=== PATIENT | female | born 1945 | race Caucasian/White ===

== ENCOUNTER 2017-02-16 15:31 | Inpatient (IN) | payer OTHER ==
[~2017-02-16] VITALS: Ht 157.4 cm; Wt 41.7 kg
--- NOTE | ~2017-02-16 | PR ---
[place], [place] PROGRESS NOTE [id number] UNIT #: [id number] ROOM: 317 DOCTOR: JORDAN IGNACIO MD BIRTHDATE: [birth year] DOS: 02/18/2017 CHIEF COMPLAINT: "I don't know how I a peer." SUMMARY OF THE VISIT: The patient was interviewed in the dining area. She engaged readily in conversation, but tended to be somewhat perseverative and repetitive in nature. She repeated her story at least 2-3 times on how she came about being here and even then, her story was rather fragmented and disjointed, and she never quite came to exhibiting the fine details. She seems very fragmented in general and rather disjointed in her thought process. MENTAL STATUS: She is alert and oriented to person, place, but not necessarily to time. Mood does seem to be rather fretful and anxious, and her thoughts are disjointed and fragmented. There is a level of pressured speech, but she is interruptible. Memory seems to be intact with gaps. PLAN: Her folic acid level is subtherapeutic at 3.30, folic acid 1 mg daily has been started. Vitamin D is subtherapeutic at 9.9, vitamin D 50,000 international units likewise has been started. Vitamin B12 is low normal at 252, I will go ahead and provide her with a vitamin B12 injection of 1000 mcg IM today. Given the fact that there is such fragmentation in her thoughts and she seems somewhat hypomanic, I will start her on Depakote 250 mg 3 times daily and monitor risk, benefit ratio. Continue to engage her in individual and barba milieu activity. We will discuss with family welfare social work professor the appropriate placement for her post-discharge. Engage in individual and barba milieu activity, returning to such place when psychiatrically stable. JORDAN IGNACIO MD CM:PNTRANS 7 [phone] JORDAN IGNACIO MD 02/18/17839 interface
--- NOTE | ~2017-02-16 | PR ---
[place], [place] PROGRESS NOTE [id number] UNIT #: [id number] ROOM: 317 DOCTOR: JORDAN IGNACIO MD BIRTHDATE: [birth year] DOS: 02/19/2017 CHIEF COMPLAINT: "Oh I slept well. I know I do not eat enough, they always tell me that." SUMMARY OF THE VISIT: The patient was interviewed as she was resting in bed. She did get up and ____ bed and sat there and engaged in conversation with me. She continues to be somewhat fretful and has a hard time getting her thoughts out completely and tends to have her ideas running into each other. She did report that she did sleep well and then fixated on her not eating well, but stating that she has always had a problem with eating and that she would try harder to eat. She tended to be somewhat circumstantial in her overall description of her symptoms, she seems to be tolerating the medication regimen well and I see no sedation, somnolence or other side effects. MENTAL STATUS: She is alert and oriented with time gaps. Mood is rather fretful and anxious. She is very flighty in her presentation and is very hard to get her to simply describe what is going on in her head. There is no jose donna or hypomania. There are no auditory or visual hallucinations noted. No paranoia is present. Short term memory has gaps, otherwise she is relatively intact. PLAN: I will go ahead and increase her Exelon patch from 4.6 to 9.5 mg daily. Maintain her current dose of Remeron and Depakote. We will check Depakote level in the a.m. Engage in individual and barba milieu activity, finalize and discharge when psychiatrically stable. JORDAN IGNACIO MD CM:PNTRANS [id number] JORDAN IGNACIO MD 02/19/17 0837 interface
--- NOTE | ~2017-02-16 | WRIGHTHP ---
[place], [place] PATIENT HISTORY AND PHYSICAL EXAM [id number] UNIT #: [id number] ROOM: 317 DOCTOR: GEORGE GILLETTE BIRTHDATE: [birth year] DOS: 02/17/2017 HISTORY OF PRESENT ILLNESS: This is a 71-year-old female, who presented to [facility] Emergency Room escorted by the police where she had gotten into a heated argument with her family members that evening. Per the police report, she had been yelling and getting into verbal fight with her son and others, who live at her house. ____ the patient being belligerent and uncooperative. She seemed confused and disoriented to time, was combative. She made statements that she was sick, but will not go to the hospital on her own. She was noncooperative with the police officers and physically aggressive. Apparently, she had also made homicidal statements against her neighbor. The patient denies this and she has denied this with me this morning. She says her statements were misconstrued as threats. She denies homicidal ideation. States that she loves her grandchildren. She was put on 72-hour hold, pink slipped. She was told that she was either going to long-term or to the hospital. PAST MEDICAL HISTORY: Hypertension, anxiety, and insomnia. MENTAL STATUS: The patient is alert and oriented to person, place, approximate time. Mood, a little depressed. She is just a little disoriented. She does well on a Mini-Mental and when I am assessing her, but there is just something off about her. I cannot quite put my finger on it. Overall, her labs are pretty good. She has got low vitamin D and vitamin B. The hospitalist started her on some vitamin supplementations. The patient states her biggest concern is that she has problems with her memory, that she loses gaps of time. I asked her if she was experiencing this or if the family and others were telling her this and she said both, that she gets her days and at times confused and full days could go by and she does not remember. It should be noted part of this patient's medications is she is very tiny, very skinny. She takes Ambien 10 mg every night and she has for quite a long time. She takes Klonopin 0.5 mg, 2 times a day and sometimes admits to increasing that. She takes Stevenson 5/325 tablet every 6 hours for pain and she takes that regularly. All of these are hypnotics, sedative, can make an older person lose time, I am wondering if this what is going on. Ambien and then a benzo combined with a narcotic pain medication is just problems waiting to happen. Upon her admission, I discontinued immediately the Ambien, the Klonopin, and the pain meds. The hospitalist did restart the pain meds back at a lower dose, I started her on Exelon. I am not sure that she needs this. I am kind of wondering if her losing time is because of the Ambien. It can cause amnesic events along with benzos and the narcotics. I am going to discontinue the p.r.n. Ativan that I have ordered in lieu of Vistaril and just try to get her away from that entire benzo and narcotic combination. Keeping the Remeron 15 mg at bedtime will help with sleep and appetite. The patient states she has been skinny all her life and she is constantly for years and decades struggled with insomnia. Since she is an anxious person, I will make p.r.n. Vistaril available if I need to. I might switch that to scheduled, but I want to avoid the Ativan, the Xanax, and the Klonopin. I will keep the Exelon for now. I want to see how she does. I want to see if she clears over the next couple of days, but it would not surprise me if the combination of the Klonopin, the Stevenson, and the Ambien are part of this lady's problem. Her loss in time seems to system around the times [place], [place] PATIENT HISTORY AND PHYSICAL EXAM NAME: FLORENCE EVANSSTELLA Chavez UNIT #: [id number] ROOM: 317 DOCTOR: GEORGE GILLETTE BIRTHDATE: [birth year] when she takes these medications. We will continue to monitor and go from there. TREVOR GILLETTE CNP CM:HISPHYS:PATIENT HISTORY AND PHYSICAL EXAMINATION [id number] GEORGE GILLETTE 02/18/17 0054 interface
--- NOTE | ~2017-02-16 | PR ---
[place], [place] PROGRESS NOTE NAME: МАРИНА EVANS UNIT #: [id number] ROOM: 317 DOCTOR: JORDAN IGNACIO MD BIRTHDATE: [birth year] DOS: 02/20/2017 INTERVAL NOTE CHIEF COMPLAINT: "I miss my family; I miss my little dogs even." SUMMARY OF THE VISIT: The patient was interviewed as she sat eating breakfast, in the dining area. She engaged in conversation readily this morning and was even spontaneous and was able to give me more details of her living situation than she had previously. Her speech this morning was much more goal oriented than it had been on the previous attempts to engage her in conversation. MENTAL STATUS: She is alert and oriented to person, place, approximate to time stating that she has been in the hospital for 3 days; in reality it has been 4. Mood does seem to be fairly euthymic. Affect does seem to be more appropriate. There is no pressured speech noted. There is no hypomania or donna. There are no delusions or paranoia noted. Short term memory has some gaps, but overall she seems to be improving. PLAN: A valproic acid level obtained yesterday morning is therapeutic at 74.0; I will maintain her current psychotropic regimen. I will discuss the case with Gustavo Alfaro, psychologist, to determine her level of competency and determine from there the appropriate disposition. JORDAN IGNACIO MD CM:PNTRANS [id number] JORDAN IGNACIO MD 02/21/17 0134 interface
--- NOTE | ~2017-02-16 | DS ---
[place], [place] DISCHARGE SUMMARY NAME: МАРИНА EVANS [facility] #: [id number] UNIT #: [id number] ROOM: 317 DOCTOR: JORDAN IGNACIO MD BIRTHDATE: [birth year] DOS: 02/22/2017 CHIEF COMPLAINT: "I got into an argument with my son, but there are bad people trying to get me." HISTORY OF PRESENT ILLNESS: This is a 71-year-old white female who was brought by police to [facility] Emergency Room. She had gotten into a heated argument with family members and became very agitated and aggressive towards them. When police intervened, she became combative with them as well. She was very volatile upon her admission to the Emergency Room at [facility] and it was obvious that she was grossly psychotic and acutely manic. Because her mood swings and behavior was so erratic, it was felt that an inpatient stay was necessary and she was ultimately sent here on an involuntary basis to rule out organic factors and to attempt to stabilize on medication. PAST MEDICAL HISTORY: Remarkable for hypertension. SUMMARY OF HOSPITAL COURSE: The patient was admitted to the unit where her Ambien and Klonopin were tapered and discontinued. She was started on Remeron 15 mg at bedtime for the depressive symptomatology. She was found to be acutely manic, however, and very fragmented in her thinking, so disjointed that she was somewhat disoriented at times. Because of this, Depakote was started and the dose was gradually increased to its discharge dose of 500 mg twice daily. With the combination of the Depakote and the Remeron, her mood stabilized. Of note, screening examination showed her to have a low folic acid level, a low vitamin D level of 9.9 and almost low vitamin B12 level of 252. Appropriate supplementation of these vitamins were started. The patient improved sufficiently with the use of the Depakote and the Remeron that she returned to an euthymic state and was voicing positive plans to return home. She exhibited no side effects from the medication and was discharged then home on 02/22/2017. MENTAL STATUS AT DISCHARGE: The patient was alert and oriented with mild time gaps, but overall fairly well intact. Mood seems euthymic. Affect appropriate. There were no symptoms of hypomania or donna upon discharge. There were no auditory or visual hallucinations. No delusions, no paranoia. Short term memory had mild gaps, but overall she was fairly well intact. FINAL DIAGNOSIS: Bipolar type 1, mixed. PLAN: All of her prescriptions have been printed and will be sent with her. Aftercare has been set in the [facility] for her. [place], [place] DISCHARGE SUMMARY NAME: МАРИНА EVANS UNIT #: [id number] ROOM: [facility] DOCTOR: JORDAN IGNACIO MD BIRTHDATE: [birth year] JORDAN IGNACIO MD CM:DISCHARG [id number] JORDAN IGNACIO MD 02/22/17 1449 interface
--- NOTE | ~2017-02-16 | PR ---
[place], [place] PROGRESS NOTE NAME: МАРИНА EVANS UNIT #: [id number] ROOM: 317 DOCTOR: JORDAN IGNACIO MD BIRTHDATE: [birth year] DOS: 02/21/2017 INTERVAL NOTE CHIEF COMPLAINT: "I'm anxious to go home, but I want to make certain I'm ready." SUMMARY OF THE VISIT: The patient was interviewed in the dining area where she sat eating her breakfast. She was pleasant and bright. She did report that she did sleep well and her appetite is fair. She is anxious to return home. When I did tell her that I wanted to adjust her medicine further and recheck that everything is fine, she nodded in approval stating that she wanted to make certain that she was truly ready to go home before she made such a step. Nurses report that she was somewhat hypomanic last evening and was fragmented and disjointed and perhaps exhibited some sundowning issues. MENTAL STATUS: This morning, she is alert and oriented with some time gaps. Mood does seem to be trending towards euthymia. Affect is more appropriate. There are no symptoms of donna or hypomania now. There are no psychotic symptoms. Memory has some gaps. PLAN: Her valproic acid level is therapeutic at 74. I will, however, bring her Depakote from 250 mg 3 times daily to 500 mg twice a day, hoping to bring the level to approximately 90 to gain further control of her mood lability. We will engage her in individual and barba milieu activity with the plan to return home when stable. JORDAN IGNACIO MD CM:PNTRANS [id number] JORDAN IGNACIO MD 02/21/17 0931 interface
--- NOTE | ~2017-02-16 | PR ---
[place], [place] PROGRESS NOTE NAME: МАРИНА EVANS UNIT #: [id number] ROOM: 317 DOCTOR: PAWEL JACOB,SABINE (ASHKAN) BIRTHDATE: [birth year] DOS: 02/20/2017 ADDENDUM At the present time, this patient is much more lucid. I spoke at length with Dr. Chauhan, and she believes she is doing much better and will be discharged home very soon. She does have some mild neurocognitive decline; however, overall she does fairly well. Thank you very much for this consult. SABINE ARMAS ED.D CM:BRANT [phone] JORDAN ARMAS ED. (BOB)D 02/26/17 1101 interface
[2017-02-16] MEDS ORDERED: AMBIEN10 M1 JT (16:46)
[2017-02-16] MEDS ORDERED: KLONOPIN1 M1 PO (16:47)
[2017-02-16] MEDS ORDERED: ASPIR LOW81 MG PO (16:47)
[2017-02-16] MEDS ORDERED: HYDROCODONE BIT1 T11 PO (16:48)
[2017-02-16 17:35] VITALS: BP 130/80
[2017-02-16 21:48] VITALS: BP 140/68
[2017-02-16 23:02] LABS: BILIRUBIN NEGATIVE (NEGATIVE); BLOOD NEGATIVE (NEGATIVE); CLARITY CLEAR (CLEAR); COLOR YELLOW (YELLOW); GLUCOSE NEGATIVE (NEGATIVE); KETONE NEGATIVE (NEGATIVE); LEUKO ESTERASE NEGATIVE (NEGATIVE); NITRITE NEGATIVE (NEGATIVE); PH 7.5 (5.0-9.0); PROTEIN NEGATIVE (NEGATIVE); UROBILINOGEN 0.2 E.U./dl (0.2-1.0)
[2017-02-16 23:15] LABS: BACTERIA 1+; RBC 0-2 rbc/hpf (0-2); URINE REFLEX COMMENT NO (NO)
[2017-02-17 06:20] LABS: BASO % 0.4 % (0.0-1.0); EOS # 0.1 10*3/uL (0.0-0.4); EOS % 2.8 % (1.0-4.0); HEMATOCRIT 38.8 % (37.0-47.0); HEMOGLOBIN 12.5 g/dl (12.0-16.0); LYMPH # 1.8 10*3/uL (1.3-4.4); LYMPH % 38.2 % (27.0-41.0); MEAN CELL VOLUME 92.8 fl (81.0-99.0); MEAN CORPUSCULAR HGB 29.9 pg (27.0-31.0); MEAN CORPUSCULAR HGB CONC 32.2 g/dl (33.0-37.0); MEAN PLATELET VOLUME 9.9 fl (9.6-12.3); MONO # 0.5 10*3/uL (0.1-1.0); MONO % 10.4 % (3.0-9.0); NEUT # 2.3 10*3/uL (2.3-7.9); PLATELET COUNT AUTOMATED 246 10*3/uL (130-400); RED BLOOD COUNT 4.18 10*6/uL (4.10-5.10); RED CELL DISTRI WIDTH 14.5 % (0-14.5); WHITE BLOOD COUNT 4.7 10*3/uL (4.8-10.8)
[2017-02-17 06:55] LABS: BUN 20 mg/dl (7-24); CARBON DIOXIDE 29 mmol/L (21-32); CHLORIDE 111 mmol/L (98-107); CHOLESTEROL 233 mg/dL (<200); EST GLOM FILT AFRICAN AMERICAN > 60 ml/min; GLUCOSE 84 mg/dL (65-99); HDL CHOLESTEROL 73 mg/dl (40-60); LDL CHOLESTEROL 141 mg/dL (9-159); POTASSIUM 4.8 mmol/L (3.5-5.1); SODIUM 147 mmol/L (136-145); TRIGLYCERIDES 93 mg/dl (<150); VLDL CHOLESTEROL 19 mg/dL (6-40)
[2017-02-17 07:01] LABS: THYROID STIM HORMONE (HS) 0.863 uIU/ml (0.358-4.75)
[2017-02-17 07:03] LABS: HEMOGLOBIN A1c 5.8 % (4.8-5.6)
[2017-02-17 07:36] LABS: VITAMIN D, 25-HYDROXY 9.9 ng/mL (30-100)
[2017-02-17 07:37] LABS: FOLIC ACID 3.3 ng/mL (>5.38)
[2017-02-17 07:51] VITALS: BP 113/53
[2017-02-17 08:12] VITALS: BP 113/53
[2017-02-17 20:01] VITALS: BP 142/73
[2017-02-18 08:00] VITALS: BP 150/64
[2017-02-18 19:53] VITALS: BP 141/84
[2017-02-19 08:00] VITALS: BP 145/63
[2017-02-19 20:00] VITALS: BP 140/66
[2017-02-20 08:18] VITALS: BP 126/54
[2017-02-20 19:41] VITALS: BP 142/78
[2017-02-21 07:26] VITALS: BP 127/60
[2017-02-21 20:03] VITALS: BP 138/73
[2017-02-22 08:01] VITALS: BP 131/63
[2017-02-22] MEDS ORDERED: MIRTAZAPINE15 M2 PO (08:11)
[2017-02-22] MEDS ORDERED: RIVASTIGMINE1 EAC1 T (08:11)
[2017-02-22] MEDS ORDERED: NATURE'S BLEND F1 MG PO (08:11)
[2017-02-22] MEDS ORDERED: VITAMIN D50000 I3 PO (08:11)
[2017-02-22] MEDS ORDERED: DIVALPROEX SOD500 MG PO (08:11)
== END 2017-02-22 14:40 | disposition home or self-care (01) | DRG 885 ==
LOC: 3N 15:31
PROVIDERS: Psychiatry & Neurology Psychiatry
DX: F31.60 Bipolar disorder, current episode mixed, unspecified (principal); R82.71 Bacteriuria; M41.25 Other idiopathic scoliosis, thoracolumbar region; I10 Essential (primary) hypertension; F41.9 Anxiety disorder, unspecified; G47.00 Insomnia, unspecified; E55.9 Vitamin D deficiency, unspecified; E53.8 Deficiency of other specified B group vitamins; E78.5 Hyperlipidemia, unspecified; G89.29 Other chronic pain; M54.5 Low back pain; Z79.82 Long term (current) use of aspirin; Z79.899 Other long term (current) drug therapy